=== PATIENT | female | born 1960 | race Caucasian/White ===

== ENCOUNTER 2021-10-08 13:27 | Outpatient (CLI) | payer OTHER, MEDICAID, SELFPAY ==
--- NOTE | 2021-10-08 14:00 | CRLHL7_ITS ---
For Patients: As a result of the Century Cures Act, medical imaging exams and procedure reports are released immediately into your electronic medical record. You may view this report before your referring provider. If you have questions, please contact your health care provider. BILATERAL SCREENING MAMMOGRAM WITH COMPUTER-AIDED DETECTION AND TOMOSYNTHESIS TECHNIQUE: CC and MLO views were obtained. These mammographic images have been obtained using full-field digital technique. These mammographic images were interpreted with the benefit of computer-aided detection. Breast Tomosynthesis was used in this interpretation. COMPARISON FILM: 08/20/20, 08/09/19, 06/12/18. FINDINGS: The breasts are heterogeneously dense, which may obscure small masses IMPRESSION: There is no radiographic evidence for malignancy. ASSESSMENT: BI-RADS Category 2: Benign RECOMMENDATION: Routine screening mammogram in 1 year. A lay language report of this examination will be provided to the patient. Vini Eli M.D. Diagnostic Radiologist [email or web address] Transcribed: 4:24 pm DW/Dictated by: Vini Eli MD @ 10/11/2021 8:23:00 AM (Electronically Signed)
== END 2021-10-08 13:28 | disposition home or self-care (01) ==
LOC: MAMMO 13:30
PROVIDERS: Visit Provider Emergency Medicine
DX: Z12.31 Encounter for screening mammogram for malignant neoplasm of breast (principal); R92.2 Inconclusive mammogram
CPT/HCPCS: 77063; 77067

== ENCOUNTER 2021-12-06 19:21 | Outpatient (CLI) | payer OTHER, MEDICAID, SELFPAY ==
[2021-12-06 19:38] LABS: Erythrocyte SedimentationRate* 5 mm/hr (2-20)
[2021-12-06 19:52] LABS: D Dimer Quantitative* 335 ng/ml (100-500)
[2021-12-06 22:39] LABS: C Reactive Protein* < 0.5 mg/dL (0.5-1.0)
== END 2021-12-06 19:22 | disposition home or self-care (01) ==
LOC: LKVREF 19:22
PROVIDERS: PCP Emergency Medicine; Visit Provider Emergency Medicine
DX: I77.6 Arteritis, unspecified (principal); M79.89 Other specified soft tissue disorders
CPT/HCPCS: 85379; 85651; 86140

== ENCOUNTER 2022-05-26 13:15 | Outpatient (CLI) | payer OTHER, MEDICAID, SELFPAY | END 2022-05-26 13:16 | disposition home or self-care (01) | PROVIDERS: PCP Emergency Medicine; Visit Provider Emergency Medicine | DX: I10 Essential (primary) hypertension (principal); E78.5 Hyperlipidemia, unspecified | CPT/HCPCS: 80048; 80061 ==

== ENCOUNTER 2022-06-16 15:02 | Outpatient (CLI) | payer OTHER, MEDICAID, SELFPAY ==
--- NOTE | 2022-06-16 16:00 | CRLHL7_ITS ---
For Patients: As a result of the Century Cures Act, medical imaging exams and procedure reports are released immediately into your electronic medical record. You may view this report before your referring provider. If you have questions, please contact your health care provider. DXA BONE MINERAL DENSITY STUDY Reason for exam: Screening. Current height (in): 69. Weight (lb): 160. Menopause age: 48. Ethnicity: White. 1. Have you had a previous hip or vertebral fracture? No. 2. Have you had any fractures during your adult life which did not result from significant trauma (e.g., auto accident)? No. 3. Did either of your parents have a hip fracture? No. 4. Do you smoke? No. 5. Have you ever taken Glucocorticoids? No. 6. Do you have rheumatoid arthritis? No. 7. Do you have secondary osteoporosis? No. 8. Do you drink 3 or more alcoholic drinks per day? No. 9. Are you being treated for osteoporosis? No. 10. Have you ever taken any of the following medications: Actonel, Evista, Fosamax, Miacalcin, Reclast, Boniva, Forteo, HRT (i.e., estrogen/hormone therapy), Protelos, Prolia, Vitamin D, Calcium, other ??? please specify. ANSWER: No. 11. Do you have any of the following medical conditions: Anorexia or bulimia, asthma or emphysema, end stage renal disease, hyperparathyroidism, any seizure disorders, cancer, inflammatory bowel diseases, hysterectomy, other ??? please specify. ANSWER: Yes, high blood pressure 12. What was your maximum height (inches)? 69. 13. Do you perform weight bearing exercise regularly? No. 14. Do you regularly consume dairy products? Yes. 15. Do you drink caffeinated beverages? Yes. If female: 16. At what age did your period start? 19. 17. Are you premenopausal? No. 18. How many full-term pregnancies have you had? 2. 19. Have you ever missed your period for more than 6 months in a row (not including or menopause)? No. TECHNIQUE: Bone mineral density study was performed using the [employer]. FINDINGS: The results of the study expressed as bone mineral density (BMD) are as follows: Lumbar spine L1 to L3: BMD: 0.951 g/cm2. T-score: -0.6. Z-score: 0.8 Neck Left: BMD: 0.925 g/cm2. T-score: 0.7. Z-score: 2.0 Right: BMD: 0.884 g/cm2. T-score: 0.3. Z-score: 1.6 Total Left: BMD: 0.993 g/cm2. T-score: 0.4. Z-score: 1.4 Right: BMD: 0.993 g/cm2. T-score: 0.4. Z-score: 1.4 IMPRESSION: Normal bone density. Vini Eli M.D. Diagnostic Radiologist [email or web address] DEEPIKA/margot frost/Dictated by: Vini Eli MD @ 06/17/2022 1:09:00 PM (Electronically Signed)
== END 2022-06-16 15:03 | disposition home or self-care (01) ==
LOC: RAD 15:04
PROVIDERS: PCP Emergency Medicine; Visit Provider Emergency Medicine
DX: Z13.820 Encounter for screening for osteoporosis (principal)
CPT/HCPCS: 77080

== ENCOUNTER 2022-10-21 13:14 | Outpatient (CLI) | payer MEDICAID, SELFPAY ==
--- NOTE | 2022-10-21 13:40 | CRLHL7_ITS ---
For Patients: As a result of the Cures Act, medical imaging exams and procedure reports are released immediately into your electronic medical record. You may view this report before your referring provider. If you have questions, please contact your health care provider. BILATERAL SCREENING MAMMOGRAM WITH COMPUTER-AIDED DETECTION AND TOMOSYNTHESIS TECHNIQUE: CC and MLO views were obtained. These mammographic images have been obtained using full-field digital technique. These mammographic images were interpreted with the benefit of computer-aided detection. Breast Tomosynthesis was used in this interpretation. COMPARISON FILM: 10/08/21, 08/20/20, 08/09/19. FINDINGS: The breasts are heterogeneously dense, which may obscure small masses IMPRESSION: There is no radiographic evidence for malignancy. ASSESSMENT: BI-RADS Category 2: Benign RECOMMENDATION: Routine screening mammogram in 1 year. A lay language report of this examination will be provided to the patient. Quinn De Leon M.D. Diagnostic/Nuclear Medicine Radiologist [email or web address] JAMES/Dictated by: Quinn De Leon MD @ 10/24/2022 8:49:00 AM (Electronically Signed)
== END 2022-10-21 13:15 | disposition home or self-care (01) ==
LOC: MAMMO 13:17
PROVIDERS: PCP Emergency Medicine; Visit Provider Emergency Medicine
DX: Z12.31 Encounter for screening mammogram for malignant neoplasm of breast (principal); R92.2 Inconclusive mammogram
CPT/HCPCS: 77063; 77067